=== PATIENT | female | born 1970 | race Two or more races ===

== ENCOUNTER → 2017-07-17 | Outpatient (CLI) | payer BC ==
[~2017-07-17] VITALS: Ht 157.5 cm; Wt 97.1 kg
[~2017-07-17] MED LIST: IOHEXOL 350 MG/ML 100ML IJ ONE
[2017-07-17 09:25] VITALS: BP 133/99
[2017-07-17 10:30] VITALS: BP 131/95
[2017-07-17 12:10] LABS: Urine Blood Negative /uL (Negative); Urine Specific Gravity 1.048 (1.001-1.035)
[2017-07-17 12:22] LABS: Free T4 (Free Thyroxine) 1.22 ng/dL (0.89-1.76)
[2017-07-17 13:22] LABS: Albumin 3.8 g/dL (3.4-5.0); BUN/Creatinine Ratio 16.7; Bilirubin, Total 0.3 mg/dL (0.2-1.0); Calcium 9.2 mg/dL (8.5-10.1); Potassium 4.1 mmol/L (3.5-5.1); Total Protein 7.4 g/dL (6.4-8.2)
[2017-07-17 14:16] LABS: Basophils # (auto) 0.1 uL; Eosinophils # (auto) 0.3 uL; Monocytes # (auto) 0.5 uL; Nucleated Red Blood Cells % 0.3 %
[2017-07-17 14:24] LABS: Basophils % (auto) 1.3 % (0.0-2.0); Eosinophils % (auto) 3.6 % (0.0-7.0); Hematocrit 42.5 % (36.0-46.0); Hemoglobin 13.8 g/dL (12.2-16.2); Lymphocytes # (auto) 2.6 uL; Lymphocytes % (auto) 28.4 % (10.0-50.0); Mean Corpuscular Hemoglobin 28.1 pg (28.0-32.0); Mean Corpuscular Hgb Conc. 32.5 g/dL (32.0-36.0); Mean Corpuscular Volume 86.5 fL (80.0-100.0); Monocytes % (auto) 5.1 % (0.0-12.0); Neutrophils # (auto) 5.6 uL; Neutrophils % (auto) 61.6 % (37.0-80.0); Platelet Count (auto) 373 10^3/uL (140-450); Red Blood Cells 4.91 10^6/uL (4.0-5.20); White Blood Cell 9.1 10^3/uL (4.4-10.8)
== END | disposition home or self-care (01) ==
LOC: Rad HDHVI 08:16
PROVIDERS: ATTEND Internal Medicine Cardiovascular Disease
DX: I26.99 Other pulmonary embolism without acute cor pulmonale (principal); E78.00 Pure hypercholesterolemia, unspecified; I10 Essential (primary) hypertension; E11.9 Type 2 diabetes mellitus without complications; E03.9 Hypothyroidism, unspecified; E55.9 Vitamin D deficiency, unspecified; D51.9 Vitamin B12 deficiency anemia, unspecified; N39.0 Urinary tract infection, site not specified; K76.0 Fatty (change of) liver, not elsewhere classified; R07.9 Chest pain, unspecified; I31.9 Disease of pericardium, unspecified
CPT/HCPCS: 36415; 71275; 78452; 80053; 80061; 81003; 82306; 82565; 82607; 83036; 84439; 84443; 85025; 93017; 93306; 96374; A9500; G0463; Q9967

== ENCOUNTER → 2018-02-19 | Outpatient (CLI) | payer BC ==
[2018-02-19 16:27] LABS: Follicle Stimulating Hormone 29.75 IU/L (SEE BELOW); Leuteinizing Hormone 11.2 IU/L
== END | disposition home or self-care (01) ==
LOC: LAB 14:43
PROVIDERS: ATTEND Internal Medicine Cardiovascular Disease
DX: N95.9 Unspecified menopausal and perimenopausal disorder (principal); R53.83 Other fatigue; E28.8 Other ovarian dysfunction
CPT/HCPCS: 82672; 83001; 83002; 84144